=== PATIENT | male | born 1940 | race Caucasian/White ===

== ENCOUNTER 2020-03-10 14:15 | Emergency (ER) | payer MEDICARE ==
[~2020-03-10] VITALS: Ht 172.7 cm; Wt 82.6 kg
[2020-03-10 15:29] LABS: BASOPHILS % (AUTO) 0 % (0-1); EOSINOPHILS % (AUTO) 1 % (1-7); LYMPHOCYTES % (AUTO) 11 % (22-44); MEAN CORPUSCULAR HEMOGLOBIN 31.1 pg (27.5-34.5); MEAN PLATELET VOLUME 8.3 fL (7.4-10.4); MONOCYTES % (AUTO) 6 % (2-9); NEUTROPHILS % (AUTO) 81 % (42-75); PLATELET COUNT 361 x10^3/uL (130-400); RED BLOOD COUNT 4.54 x10^6/uL (4.38-5.82)
[2020-03-10 15:31] LABS: MD NO
[2020-03-10 15:33] LABS: ANION GAP 6 mmol/L (5-15); CALCIUM 9.2 mg/dL (8.5-10.1); CHLORIDE 105 mmol/L (98-107); CREATININE 0.98 mg/dL (0.7-1.3)
[2020-03-10 15:33] LABS: MICROSCOPIC AUTO
[2020-03-10 16:52] VITALS: BP 138/84
== END 2020-03-10 17:09 | disposition home or self-care (01) ==
LOC: ED 14:51
DX: R33.9 Retention of urine, unspecified (principal); R30.0 Dysuria; R10.30 Lower abdominal pain, unspecified
CPT/HCPCS: 36415; 51702; 80048; 81001; 85025; 99284